=== PATIENT | female | born 1990 | race Caucasian/White ===

== ENCOUNTER 2019-03-15 06:11 | Emergency (ER) | payer SELFPAY ==
[~2019-03-15] VITALS: Ht 163.8 cm; Wt 72.3 kg
[2019-03-15 07:10] LABS: HEMOGLOBIN 13.8 g/dl (12.0-16.0); IMMATURE GRANULOCYTES 0.4 % (0.0-5.0); MEAN CELL VOLUME 89.2 fL CALC (80.0-100.0); MEAN CORPUSCULAR HGB 29.3 pG CALC (26.0-32.0); MEAN CORPUSCULAR HGB CONC 32.9 g/L CALC (32.0-36.0); NEUT# 2.93 thou/uL (2.00-7.15); RED BLOOD COUNT 4.71 mill/uL (4.20-5.60); RED CELL DISTRI WIDTH 12.2 % (11.5-15.5)
[2019-03-15 07:12] LABS: URINE BILIRUBIN - DIPSTICK NEGATIVE (NEGATIVE); URINE BLOOD DIPSTICK TRACE-INTACT (NEGATIVE); URINE COLOR YELLOW; URINE GLUCOSE - DIPSTICK NEGATIVE (NEGATIVE); URINE KETONE NEGATIVE (NEGATIVE); URINE LEUK ESTERASE NEGATIVE (NEGATIVE); URINE NITRITE - DIPSTICK NEGATIVE (Negative); URINE PH 5.5 (4.5-8.0); URINE PROTEIN - DIPSTICK 30 mg/dL (NEG-TRACE); URINE SPECIFIC GRAVITY >=1.030; URINE UROBILINOGEN - DIPSTICK 0.2 E.U./dL (0.2)
[2019-03-15 07:16] LABS: BARBITURATES NEGATIVE (NEGATIVE); COCAINE NEGATIVE (NEGATIVE); METHADONE NEGATIVE (NEGATIVE); OXCYCODONE NEGATIVE (NEGATIVE); TETRAHYDROCANNABIONOL POSITIVE (NEGATIVE); TRICYLIC ANTIDEPRESSANTS NEGATIVE (NEGATIVE)
[2019-03-15 07:25] LABS: URINE BACTERIA FEW hpf; URINE MUCUS FEW hpf (NONE-FEW); URINE SQUAMOUS EPITHELIAL CELL FEW EPI/hpf (0-FEW); URINE WBC 0-2 WBC/hpf (0-5)
[2019-03-15 07:37] LABS: ALBUMIN 4.6 g/dL (3.2-5.0); ALKALINE PHOSPHATASE 50 u/l (38-126); ANION GAP 12 (6-22 (CALC)); BILIRUBIN, TOTAL 0.9 mg/dL (0.0-1.4); BUN 16 mg/dL (7-17); BUN/CREATININE RATIO 21 (12-20 (CALC)); CARBON DIOXIDE 27 mmol/l (22-30); CHLORIDE 108 mmol/l (95-108); CPK 99 u/l (30-165); CREATININE 0.8 mg/dL (0.5-1.0); GFR > 60 ML/MIN (>=60 (CALC)); GFR FOR AFR.AMER. > 60 ML/MIN (>=60 (CALC)); MAGNESIUM 2.1 mg/dL (1.6-2.3); POTASSIUM 4.7 mmol/l (3.5-5.1); SGOT/AST 30 u/l (14-36); SODIUM 142 mmol/l (137-146); TOTAL PROTEIN 7.5 g/dL (6.3-8.2)
[2019-03-15 07:49] LABS: MYOGLOBIN 31 ng/mL (0 - 62)
[2019-03-15 09:55] VITALS: BP 115/81
== END 2019-03-15 10:04 | disposition home or self-care (01) | DRG 310 ==
LOC: ED 06:11
PROVIDERS: Family Medicine
DX: R00.2 Palpitations (principal); Z82.49 Family history of ischemic heart disease and other diseases of the circulatory system; Z82.3 Family history of stroke

== ENCOUNTER 2021-11-29 11:21 | Emergency (ER) | payer SELFPAY ==
[~2021-11-29] VITALS: Ht 162.6 cm; Wt 63.6 kg
[2021-11-29 15:19] VITALS: BP 118/90
== END 2021-11-29 15:20 | disposition home or self-care (01) | DRG 90 ==
LOC: ED 11:21
DX: S06.0X0A Concussion without loss of consciousness, initial encounter (principal); S00.83XA Contusion of other part of head, initial encounter; W22.01XA Walked into wall, initial encounter; Y92.009 Unspecified place in unspecified non-institutional (private) residence as the place of occurrence of the external cause